=== PATIENT | female | born 1990 | race Caucasian/White ===

== ENCOUNTER 2016-09-06 23:22 | Emergency (ER) | payer OTHER ==
[~2016-09-06] VITALS: Ht 165.1 cm; Wt 102.1 kg
[2016-09-06 23:37] VITALS: TEMP 37; Ht 165.1 cm; Wt 102.1 kg
[2016-09-07] MEDS ORDERED: KETOROLAC TROMETHAMINE 30 MG/ML VIAL IV STA (00:02)
[2016-09-07] MEDS ORDERED: PROCHLORPERAZINE 5 MG/ML 2 ML VIAL IV STA (00:02)
[2016-09-07] MEDS ORDERED: DiphenhydrAMINE HCL 50 MG/ML VIAL IV STA (00:02)
[2016-09-07] MEDS ORDERED: SODIUM CHLORIDE 0.9% 1000ML 1,000 ML IV ONE (00:15)
[2016-09-07 00:17] LABS: BASO % 0.1 %; BASO ABS # 0.01 K/uL (0-0.2); COMPLETE YES; EOS % 0.1 %; HEMATOCRIT 40.6 % (37-47); IG% 0.4 %; LYMPH % 10.9 %; MEAN CORPUSCULAR HGB CONC 33.7 g/dl (32-36); MEAN PLATELET VOLUME 13.8 fL (7.4-10.4); MONO % 3.3 %; NEUT % 85.2 %; PLATELET COUNT 175 K/uL (130-400); RED BLOOD COUNT 4.56 M/uL (4.2-5.4); WHITE BLOOD COUNT 14.71 K/uL (4.8-10.8)
[2016-09-07 00:35] LABS: BUN/CREATININE RATIO 12.5 (10-20); CALCIUM 8.9 mg/dl (8.5-10.1); CREATININE 0.82 mg/dl (0.60-1.20); POTASSIUM 3.9 mmol/L (3.5-5.1)
[2016-09-07 00:46] LABS: ALB/GLOB RATIO 1.1 (0.9-2); THYROID STIMULATING HORMONE 2.26 uIu/ml (0.300-4.500)
[2016-09-07 01:09] LABS: LYME DISEASE AB IGG NEG (NEG); LYME DISEASE AB IGM NEG (NEG)
[2016-09-07] MEDS ORDERED: FLUO20CA35 PO (01:31)
[2016-09-07 01:59] VITALS: BP 121/77; PULSE 75; O2SAT 95
--- NOTE | 2016-09-07 05:44 | EMERGENCY ROOM VISIT NOTE ---
History First contact with patient: 23:41 Chief Complaint: NEURO SYMPTOMS Stated Complaint: TROUBLE/ TINGLING IN EYE, MIGRAINES, NUERO SYM Nursing Triage Summary: Patient with history of migraines, has had a migraine for last month. Patient was seen by PCP and given "a shot for pain" but it did not help. Tonight also c/o right sided weakness and right facial droop but symptoms resolved by time she got to ER. History of Present Illness The patient is a 25 year old female who presents to the Emergency Room with complaints of migraine headache symptoms off and on for the past one month. The patient has a long-standing history of migraine headaches, and does not regularly follow with neurology. Evidently she is staying in this area locally with a friend, and is unsure when she will be returning home. The patient did establish with a primary care physician's office this week and was given a shot of Toradol which did not significantly improve her symptoms. The patient states that tonight she had an odd sensation of twitching of her right eye, which is different for her. The patient also states that she felt like she had right-sided body weakness, however this only lasted for a few seconds before completely resolving. The patient has not had fever or chills. No neck pain or chest pain. She does take Prozac on a daily basis, but has been on this medication for some time. Review of Systems More than 10 systems were reviewed and otherwise negative with the exception of history of present illness. Past Medical/Surgical History History of chronic migraines Family History No pertinent family history Social History Smoking Status: Never Smoker Current/Historical Medications Scheduled Fluoxetine (Prozac), 20 MG PO DAILY Allergies Coded Allergies: No Known Allergies (Unverified , 09/06/16) Physical Exam Vital Signs Date Time Temp Pulse Resp B/P Pulse Ox O2 Delivery O2 Flow Rate FiO2 09/07/16 01:59 75 16 121/77 95 09/06/16 23:37 37.0 92 16 142/89 97 Room Air Pain Rating (0-10): 1.0 Physical Exam VITALS: Vitals are noted on the nurse's note and reviewed by myself. Vital signs stable. GENERAL: Well-developed, well-nourished, white female, who is in no acute distress and resting comfortably. Patient is cooperative with the examination. HEAD: Normocephalic atraumatic. EARS: External ear normal. External auditory canals clear, tympanic membranes pearly flowers without erythema or effusion bilaterally. EYES: Pupils equal round and reactive to light and accommodation. Conjunctivae without injection, sclerae without icterus. Extraocular movements intact. NOSE: Patent, turbinates without inflammation or discharge. MOUTH: Mucous membranes moist. Tonsils are not enlarged. Pharynx without erythema, blood, or exudate. Uvula midline. Airway patent. NECK: Supple without nuchal rigidity. No lymphadenopathy. No thyromegaly. Cervical spine is nontender. HEART: Regular rate and rhythm without murmurs gallops or rubs. LUNGS: Clear to auscultation bilaterally without wheezes, rales or rhonchi. No retractions or accessory muscle use. ABDOMEN: Positive normal bowel sounds x 4. Soft, nontender, without masses or organomegaly. No guarding or rebound tenderness. MUSCULOSKELETAL: No muscle atrophy, erythema, or edema noted. Full range of motion without joint tenderness in all extremities. No tenderness to palpation. Normal gait. Strength 5/5 throughout. NEURO: Patient was alert and oriented to person place and time. CN II through XII grossly intact. Deep tendon reflexes 2+ throughout. No focal neurological deficits SKIN: The skin was without rashes, erythema, edema, or bruising. Capillary reflex less than 2 seconds. Medical Decision & Procedures ER Provider Diagnostic Interpretation: Preliminary Findings Only See Final Report For Complete Findings CT HEAD: No intracranial hemorrhage or mass effect. Laboratory Results 09/07/16 00:05 Red Blood Count 4.56, Mean Corpuscular Volume 89.0, Mean Corpuscular Hemoglobin 30.0, Mean Corpuscular Hemoglobin Concent 33.7, Mean Platelet Volume 13.8, Neutrophils (%) (Auto) 85.2, Lymphocytes (%) (Auto) 10.9, Monocytes (%) (Auto) 3.3, Eosinophils (%) (Auto) 0.1, Basophils (%) (Auto) 0.1, Neutrophils # (Auto) 12.53, Lymphocytes # (Auto) 1.60, Monocytes # (Auto) 0.49, Eosinophils # (Auto) 0.02, Basophils # (Auto) 0.01 09/07/16 00:05 Test 09/07/16 00:05 White Blood Count 14.71 K/uL (4.8-10.8) Red Blood Count 4.56 M/uL (4.2-5.4) Hemoglobin 13.7 g/dL (12.0-16.0) Hematocrit 40.6 % (37-47) Mean Corpuscular Volume 89.0 fL (80-100) Mean Corpuscular Hemoglobin 30.0 pg (25-34) Mean Corpuscular Hemoglobin Concent 33.7 g/dl (32-36) Platelet Count 175 K/uL (130-400) Mean Platelet Volume 13.8 fL (7.4-10.4) Neutrophils (%) (Auto) 85.2 % Lymphocytes (%) (Auto) 10.9 % Monocytes (%) (Auto) 3.3 % Eosinophils (%) (Auto) 0.1 % Basophils (%) (Auto) 0.1 % Neutrophils # (Auto) 12.53 K/uL (1.4-6.5) Lymphocytes # (Auto) 1.60 K/uL (1.2-3.4) Monocytes # (Auto) 0.49 K/uL (0.11-0.59) Eosinophils # (Auto) 0.02 K/uL (0-0.5) Basophils # (Auto) 0.01 K/uL (0-0.2) RDW Standard Deviation 42.3 fL (36.4-46.3) RDW Coefficient of Variation 13.2 % (11.5-14.5) Immature Granulocyte % (Auto) 0.4 % Immature Granulocyte # (Auto) 0.06 K/uL (0.00-0.02) Anion Gap 12.0 mmol/L (3-11) Est Creatinine Clear Calc Drug Dose 123.2 ml/min Estimated GFR () 114.5 Estimated GFR (Non- 98.8 BUN/Creatinine Ratio 12.5 (10-20) Calcium Level 8.9 mg/dl (8.5-10.1) Total Bilirubin 0.2 mg/dl (0.2-1) Aspartate Amino Transf (AST/SGOT) 14 U/L (15-37) Alanine Aminotransferase (ALT/SGPT) 24 U/L (12-78) Alkaline Phosphatase 93 U/L (45-117) Total Protein 7.1 gm/dl (6.4-8.2) Albumin 3.7 gm/dl (3.4-5.0) Globulin 3.4 gm/dl (2.5-4.0) Albumin/Globulin Ratio 1.1 (0.9-2) Thyroid Stimulating Hormone (TSH) 2.260 uIu/ml (0.300-4.500) Lyme Disease IgG Antibody NEG (NEG) Lyme Disease IgM Antibody NEG (NEG) Medications Administered Medications (Trade) Dose Ordered Sig/Indu Route Start Time Stop Time Status Last Admin Dose Admin Diphenhydramine HCl (Benadryl Inj) 50 mg NOW STAT IV 09/07/16 00:02 09/07/16 00:05 DC 09/07/16 00:15 50 MG Prochlorperazine Edisylate (Compazine Inj) 10 mg NOW STAT IV 09/07/16 00:02 09/07/16 00:05 DC 09/07/16 00:15 10 MG Ketorolac Tromethamine 30 mg 30 mg NOW STAT IV 09/07/16 00:02 09/07/16 00:05 DC 09/07/16 00:15 30 MG Sodium Chloride (Nss 1000ml) 1,000 ml @ 999 mls/hr Q1H1M ONCE IV 09/07/16 00:15 09/07/16 01:15 DC 09/07/16 00:15 999 MLS/HR ED Course Physical exam and history were performed. Nursing notes and EMR were reviewed. Patient appears to have a persistent headache for the past month. On examination the patient does not appear toxic or in any distress. Neurologically she is intact. IV access was established and labs were obtained. The patient was hydrated with normal saline and given 30 mg IV Toradol, 10 mg IV Compazine, and 50 mg IV Benadryl. She has not had recent imaging of her head, and does not follow with neurology. Because of this I did elect to perform a CT scan. The patient's blood work is as above and was reviewed. She does not have a significantly elevated white blood cell count, anemia, bandemia, or gross electrolyte imbalance. Her remaining blood work is nondiagnostic. She does not have a positive Lyme screen. Her CT scan does not show evidence of acute intracranial findings. Overall the patient had significant improvement of her symptoms after the above intervention. I had a lengthy discussion with her regarding further options of care. The patient felt comfortable with discharge home without further testing. This appears reasonable, as I suspect her symptoms are related to her migraine headaches. I did recommend that she follow with neurology locally if she has intention of staying in this area for some time. The patient was otherwise invited back to the ER with new, worsening, or concerning symptoms. She was discharged home under the care of a female manager highway who is acting as the dedicated driver today. The chart was completed utilizing [email or web address] Speech Voice Recognition Software. Grammatical errors, random word insertions, pronoun errors, and incomplete sentences are an occasional consequence of this system due to software limitations, ambient noise, and hardware issues. Any formal questions or concerns about the content, text, or information contained within the body of this dictation should be directly addressed to the provider for clarification. . Medical Decision The differential diagnosis includes, but is not limited to: acute intracranial bleed, meningitis, encephalitis, mass or mass effect, sinusitis, infection, tumor, headache, temporal arteritis and carbon monoxide exposure, and migraine. Impression Primary Impression: Migraine Departure Information Dispostion Home / Self-Care Condition GOOD Forms HOME CARE DOCUMENTATION FORM, IMPORTANT VISIT INFORMATION Patient Instructions My [facility] Additional Instructions You were seen and evaluated today on an emergency basis only. This is not a substitute for, or an effort to provide, complete comprehensive medical care. It is not possible to recognize and treat all injuries or illnesses in a single emergency department visit. For this reason it is recommended that you followup with your primary care physician or neurologist this week for ongoing care and evaluation. DO NOT drive, drink alcohol, operate machinery, or perform dangerous activities today. You were given medications in the ER that can affect your ability to safely function or operate a vehicle. Rest today in a quiet, peaceful, dark environment and get a full 8-10 hrs of sleep tonight. Avoid loud noises, smoke/smoking, alcohol, bright lights, stress, or physical exertion today to minimize the chance the headache may return. Continue current medications. Ibuprofen(Motrin, Advil) may be used for fever or pain. Use 600mg every six hours as needed. Take with food. Avoid using more than 2400mg in a 24 hour period. Do not use 2400mg per day for more than three consecutive days without physician direction. Prolonged inappropriate use can lead to stomach upset or ulcers. (AND/OR) Acetaminophen(Tylenol) may be used for fever or pain. Use 1000mg every six hours as needed. Avoid using more than 4000mg in a 24 hour period. Return to the ER for passing out, worsening headache, vision problems, neck stiffness/pain, fevers, vomiting, worsening of your condition, or as needed.
--- NOTE | 2016-09-07 07:04 | DIAGNOSTIC IMAGING REPORT ---
CT OF THE HEAD WITHOUT CONTRAST CLINICAL HISTORY: Migraine headache. COMPARISON STUDY: No previous studies for comparison. CT DOSE: 537.48 mGy.cm TECHNIQUE: Helical axial images of the head were obtained without IV contrast. Automated exposure control was utilized for the study. FINDINGS: No acute intracranial hemorrhage, midline shift or mass effect is present. Ventricular system is normal. Basilar cisterns are patent. There are no extra-axial collections. Sarkar-white differentiation is maintained. There are no findings to suggest acute dural sinus thrombosis or acute territorial infarct. There is no calvarial fracture. Visualized portions of the sinuses and the mastoid air cells are clear. IMPRESSION: No acute intracranial findings. Electronically signed by: Venkata Wilson M.D. 09/07/2016 7:02 AM Dictated Date/Time: 09/07/2016 7:01 AM
== END 2016-09-07 02:00 | disposition home or self-care (01) ==
LOC: C.EDB 23:24
DX: G43.909 Migraine, unspecified, not intractable, without status migrainosus (principal); M62.81 Muscle weakness (generalized)

== ENCOUNTER 2016-09-10 12:58 | Emergency (ER) | payer OTHER ==
[~2016-09-10] VITALS: Ht 170.2 cm; Wt 91.0 kg
[2016-09-10 12:57] VITALS: TEMP 36.6; Ht 170.2 cm; Wt 91.0 kg
[~2016-09-10 12:58] MED LIST: FLUO20CA35 PO
[2016-09-10 13:00] VITALS: O2SAT 97
[2016-09-10] MEDS ORDERED: SODIUM CHLORIDE 0.9% 1000ML 1,000 ML IV STA (13:16)
[2016-09-10] MEDS ORDERED: DiphenhydrAMINE HCL 50 MG/ML VIAL IV STA (13:16)
[2016-09-10] MEDS ORDERED: PROCHLORPERAZINE 5 MG/ML 2 ML VIAL IV STA (13:16)
--- NOTE | 2016-09-10 13:24 | EMERGENCY ROOM VISIT NOTE ---
History First contact with patient: 13:04 Chief Complaint: HEADACHE Stated Complaint: HEAD PAIN/ PALPITATIONS History of Present Illness The patient is a 25 year old female who presents to the Emergency Department via EMS for evaluation of an episode of possible headache with other associated symptoms. The patient reports that she was seen in this facility 2 days ago for a hemiplegic migraine. She reports that she has been a symptomatic since her visit to the emergency department. She did schedule an appointment with [facility] neurology for November. She's had migraines in the past, but has never seen a neurologist. The patient reports that her symptoms 2 days ago for the worse she experience. While driving from [place] to [place] today, she reports experiencing tingling in her hands as well as face and fell as though everything was shaking. She pulled inside the throat and reports feeling extremely confused. She was able to contact EMS. Upon arrival, please noted the patient was externally sweaty. She reports that her symptoms have since resolved, however she now complains of an intense headache to the top of her head rating her pain an 8/10. The patient currently denies any blurry vision, double vision, slurred speech, facial droop, unilateral weakness/ numbness, chest pain, nausea, vomiting, abdominal pain, or chance for . She denies any changes in medications recently. She does take Prozac for anxiety. She does not complain of any new or recent stressors otherwise. She denies any new substance abuse. She reports no recent alcohol use either. Review of Systems A complete 10-point Review of Systems was discussed with the patient, with pertinent positives and negatives listed in the History of Present Illness. All remaining Review of Systems questions can be considered negative unless otherwise specified. Social History Smoking Status: Never Smoker Smokeless Tobacco Use: No Drug Use: none Marital Status: in relationship Occupation Status: employed Current/Historical Medications Scheduled Fluoxetine (Prozac), 20 MG PO DAILY Scheduled PRN Tramadol (Ultram), 1-2 TAB PO Q4H PRN for Pain Allergies Coded Allergies: No Known Allergies (Unverified , 09/10/16) Physical Exam Vital Signs Date Time Temp Pulse Resp B/P Pulse Ox O2 Delivery O2 Flow Rate FiO2 09/10/16 18:46 88 18 127/85 96 09/10/16 18:26 88 18 127/85 96 Room Air 2/16/17 17:30 82 18 119/71 96 Room Air 09/10/16 17:00 70 117/69 94 Room Air 09/10/16 16:53 71 20 118/70 98 Room Air 09/10/16 16:45 73 20 109/68 98 Room Air 09/10/16 16:00 73 20 119/83 97 Room Air 09/10/16 15:59 74 20 122/70 99 Room Air 09/10/16 14:40 82 20 132/79 99 Room Air 09/10/16 14:36 81 09/10/16 13:00 97 Room Air 09/10/16 12:57 36.6 73 20 144/84 97 Room Air Pain Rating (0-10): 8 Physical Exam VITAL SIGNS - Vital signs and nursing notes were reviewed. GENERAL - 25-year-old female appearing her stated age who is in no acute distress. Communicates well with provider and answers questions appropriately. HEAD - Normocephalic, Atraumatic. No Valentin's Sign or Raccoon's Eyes. No depressed skull fractures palpable. EYES - PERRL with EOMI bilaterally. Sclera anicteric. Palpebral conjunctiva pink and moist with no injection noted. EARS - No deformities of external structures noted on gross examination bilaterally. No pain elicited with palpation of the tragus bilaterally. External auditory canals without discharge or otorrhea. Tympanic membranes pearly flowers without retraction or bulging. NOSE - Midline and without cyanosis. No epistaxis or purulent drainage noted. Septum midline without deviation or septal hematoma noted. MOUTH/OROPHARYNX - Without perioral cyanosis. Buccal mucosa pink and moist and without leukoplakia. Tongue midline with equal elevation of palate bilaterally. No tonsillar hypertrophy, erythema, or exudates noted. Good dentition noted. NECK - Neck with FROM. Supple to palpation. No lymphadenopathy noted. No nuchal rigidity. LUNGS - Chest wall symmetric without accessory muscle use, intercostals retractions, or central cyanosis. Normal vesicular breath sounds CTA B/L. No wheezes, rales, or rhonchi appreciated. CARDIAC - RRR with S1/S2. No murmur, rubs, or gallops appreciated. ABDOMEN - Abdominal contour obese and without pulsations or visible masses. BS normoactive all four quadrants. No tenderness, palpable masses, hepatosplenomegaly, or ascites noted. EXTREMITIES - No pretibial edema present. +3/5 radial and dorsalis pedis pulses palpated throughout. FROM with no tremors, fasciculations, or clonus noted on PROM throughout. +5/5 strength noted in UE/LE bilaterally. NEUROLOGIC - Cranial nerves II through XII grossly intact. Sensory intact to light touch throughout. Patellar reflexes +2/4. Patient able to perform rapid alternating movements appropriately. Negative Pronator Drift. Negative finger-to -nose. PSYCH - A&Ox3 and cooperates fully with examiner. Pt is very pleasant and interacts well with examiner. Medical Decision & Procedures ER Provider Diagnostic Interpretation: Radiological imaging and reports were reviewed by myself. Radiologist's Interpretation as follows: Brain MRI WITHOUT CONTRAST HISTORY: Headache. atypical migraine? TECHNIQUE: Multiplanar multisequence MRI of the brain was performed without the use of contrast. COMPARISON STUDY: Head CT 09/07/2016. FINDINGS: There are no areas of restricted diffusion to suggest acute infarction. The midline structures are intact. The paranasal sinuses are clear. The mastoid air cells are clear. The ventricles and sulci are within normal limits for age. There is no mass, hematoma, midline shift. The major vascular flow-voids at the skull base are well maintained. IMPRESSION: No acute intracranial abnormality. Laboratory Results 09/10/16 14:10 Red Blood Count 4.97, Mean Corpuscular Volume 88.9, Mean Corpuscular Hemoglobin 30.8, Mean Corpuscular Hemoglobin Concent 34.6, Mean Platelet Volume 13.6, Neutrophils (%) (Auto) 74.0, Lymphocytes (%) (Auto) 18.5, Monocytes (%) (Auto) 6.1, Eosinophils (%) (Auto) 0.5, Basophils (%) (Auto) 0.2, Neutrophils # (Auto) 19.28, Lymphocytes # (Auto) 4.82, Monocytes # (Auto) 1.60, Eosinophils # (Auto) 0.13, Basophils # (Auto) 0.06 09/10/16 14:10 Test 09/10/16 00:00 09/10/16 13:16 09/10/16 14:10 09/10/16 14:13 CSF Color COLORLESS CSF Appearance CLEAR CSF WBC 4 /uL (0-5) CSF RBC 52 /uL (0) CSF Xanthrochromic NO XANTHOCHROMIA CSF Cell Count Tube # 3 CSF Polynuclear WBCs (%) % CSF Chemistry Tube # 1 CSF Glucose 52 mg/dl (40-70) CSF Total Protein 43.6 mg/dl (15.0-45.0) Urine Test NEG (NEG) White Blood Count 26.07 K/uL (4.8-10.8) Red Blood Count 4.97 M/uL (4.2-5.4) Hemoglobin 15.3 g/dL (12.0-16.0) Hematocrit 44.2 % (37-47) Mean Corpuscular Volume 88.9 fL (80-100) Mean Corpuscular Hemoglobin 30.8 pg (25-34) Mean Corpuscular Hemoglobin Concent 34.6 g/dl (32-36) Platelet Count 184 K/uL (130-400) Mean Platelet Volume 13.6 fL (7.4-10.4) Neutrophils (%) (Auto) 74.0 % Lymphocytes (%) (Auto) 18.5 % Monocytes (%) (Auto) 6.1 % Eosinophils (%) (Auto) 0.5 % Basophils (%) (Auto) 0.2 % Neutrophils # (Auto) 19.28 K/uL (1.4-6.5) Lymphocytes # (Auto) 4.82 K/uL (1.2-3.4) Monocytes # (Auto) 1.60 K/uL (0.11-0.59) Eosinophils # (Auto) 0.13 K/uL (0-0.5) Basophils # (Auto) 0.06 K/uL (0-0.2) RDW Standard Deviation 42.2 fL (36.4-46.3) RDW Coefficient of Variation 13.0 % (11.5-14.5) Immature Granulocyte % (Auto) 0.7 % Immature Granulocyte # (Auto) 0.18 K/uL (0.00-0.02) Prothrombin Time 10.2 SECONDS (9.0-12.0) Prothromb Time International Ratio 1.0 (0.9-1.1) Activated Partial Thromboplast Time 23.2 SECONDS (21.0-31.0) Partial Thromboplastin Ratio 0.9 Anion Gap 11.0 mmol/L (3-11) Est Creatinine Clear Calc Drug Dose 123.4 ml/min Estimated GFR () 117.9 Estimated GFR (Non- 101.8 BUN/Creatinine Ratio 14.1 (10-20) Calcium Level 9.3 mg/dl (8.5-10.1) Magnesium Level 2.2 mg/dl (1.8-2.4) Total Bilirubin 0.2 mg/dl (0.2-1) Aspartate Amino Transf (AST/SGOT) 16 U/L (15-37) Alanine Aminotransferase (ALT/SGPT) 25 U/L (12-78) Alkaline Phosphatase 97 U/L (45-117) Total Creatine Kinase 54 U/L (26-192) Creatine Kinase MB < 0.5 ng/ml (0.5-3.6) Creatine Kinase MB Ratio (0-3.0) Total Protein 7.4 gm/dl (6.4-8.2) Albumin 3.9 gm/dl (3.4-5.0) Globulin 3.5 gm/dl (2.5-4.0) Albumin/Globulin Ratio 1.1 (0.9-2) Lipase 134 U/L (73-393) Thyroid Stimulating Hormone (TSH) 3.730 uIu/ml (0.300-4.500) Ethyl Alcohol mg/dL < 3.0 mg/dl (0-3) Lyme Disease IgG Antibody NEG (NEG) Lyme Disease IgM Antibody NEG (NEG) Bedside Troponin I 0.010 ng/ml (0-0.045) Test 09/10/16 14:20 Urine Color YELLOW Urine Appearance CLEAR (CLEAR) Urine pH >= 9.0 (4.5-7.5) Urine Specific [place] 1.009 (1.000-1.030) Urine Protein NEG (NEG) Urine Glucose (UA) NEG (NEG) Urine Ketones NEG (NEG) Urine Occult Blood NEG (NEG) Urine Nitrite NEG (NEG) Urine Bilirubin NEG (NEG) Urine Urobilinogen NEG (NEG) Urine Leukocyte Esterase NEG (NEG) Urine Opiates Screen NEG (NEG) Urine Methadone, Qualitative NEG (NEG) Urine Barbiturates NEG (NEG) Urine Phencyclidine (PCP) Level NEG (NEG) Ur Amphetamine/Methamphetamine NEG (NEG) MDMA (Ecstasy) Screen NEG (NEG) Urine Benzodiazepines Screen NEG (NEG) Urine Cocaine Metabolite NEG (NEG) Urine Marijuana (THC) NEG (NEG) Medications Administered Medications (Trade) Dose Ordered Sig/Indu Route Start Time Stop Time Status Last Admin Dose Admin Sodium Chloride (Nss 1000ml) 1,000 ml @ 999 mls/hr Q1H1M STAT IV 09/10/16 13:16 09/10/16 14:16 DC 09/10/16 13:16 999 MLS/HR Prochlorperazine Edisylate (Compazine Inj) 10 mg NOW STAT IV 09/10/16 13:16 09/10/16 13:19 DC 09/10/16 14:31 10 MG Diphenhydramine HCl (Benadryl Inj) 25 mg NOW STAT IV 09/10/16 13:16 09/10/16 13:19 DC 09/10/16 14:30 25 MG Dexamethasone Sodium Phosphate (Decadron Inj) 10 mg NOW ONCE IV 09/10/16 13:30 09/10/16 13:31 DC 09/10/16 14:31 10 MG Procedure Patient was placed on the monitoring tech and monitored throughout the entire extent of their stay. In addition, the patient's pulse oximetry was monitored throughout the entire stay. Any abnormalities or aberrancies were addressed appropriately. Lumbar Puncture Indication: Headache, Leukocytosis. Verbal consent was obtained after the risks and benefits were explained, including but not limited to headache, bleeding/clotting, scarring, infection, pain, and bone/joint/nerve damage. At this time, the risks of the procedure are less than the risks of NOT performing the procedure. A time out was taken and the correct patient and site identified. The patient was placed in the seated position and the back was prepped with betadine and draped in the standard fashion. The L3 intervertebral space was identified, anesthetized locally with 1 % lidocaine without epinephrine, and the spinal needle was inserted through the skin with the bevel parallel to the dural fibers. The needle was carefully advanced into the lumbar cistern and 4 tubes of clear CSF was obtained. The stylet was replaced and the needle was removed. A bandaid was placed and the patient was placed in the supine position. The patient tolerated the procedure well and there were no complications. ECG Indication: palpitations Rate (beats per minute): 84 Rhythm: normal sinus Findings: nonspecific-ST abn (Inferior), no acute ischemic change, no ectopy Comparison ECG Date: no prior available ED Course Patient was seen and evaluated by myself. Previous emergency department visit note was reviewed. Labs were drawn, saline lock in place. The patient was hydrated with 1000 mL normal saline. Patient received 10 mg Compazine, 25 mg Benadryl, and 10 mg Decadron intravenously. MRI of the brain without contrast was ordered. Laboratory results demonstrates a market leukocytosis of greater than 26,000. The patient is not anemic. There are no significant electrolyte abnormalities. Cardiac enzymes were negative. Troponin was not elevated. Lyme titer was negative. MRI as above. Case was discussed with my attending physician who agrees with diagnostic approach and treatment plan. Lumbar puncture was performed. CSF analysis was found to be unremarkable. I did discuss the case with Dr. Pennington from neurology. He suggests providing the patient pain medication for home as well as having her contact the office tomorrow morning to set up an appointment with his physician assistant professor. The patient was educated on worrisome symptoms for return visit to the emergency department. Patient discharged home in good condition with her significant other driving. Medical Decision Given the patient's presentation and stated complaints, I did elect to perform the above-mentioned workup. The patient seems to have had symptoms consistent with a migrainous type aura resulting in a migraine type headache. She has no fever. She was found to have a market leukocytosis, however on laboratory analysis. She does admit to taking a Medrol Dosepak at this point for pneumonia. Certainly the margination can result in elevation of white blood cell, however this is certainly a large jump within the last few days. At this point, lumbar puncture was performed. CSF was unremarkable. The patient had complete resolve of symptoms of migraine cocktail. In consultation with neurology, it is felt best that the patient be provided something for pain and have the patient follow closely in office within the next week or so. Patient is comfortable with this disposition and plan. She was educated on worrisome symptoms for return visit to the emergency department. Patient discharged home afebrile and in good condition. In the evaluation and treatment of this patient, the following differential diagnoses were considered: Migraine Headache, Intracranial Hemorrhage, Subdural Hematoma, Subarachnoid Hemorrhage, Cerebral Aneurysm, Temporal/Giant Cell Arteritis, Tension Headache, Meningitis, Encephalitis, or Hydrocephalus. Impression Primary Impression: Atypical migraine Departure Information Dispostion Home / Self-Care Condition GOOD Prescriptions Tramadol (Ultram) 50 Mg Tab 1-2 TAB PO Q4H Y for Pain, #20 TAB For Initial Treatment Prov: AlmaLacho PA-C 09/10/16 Referrals No Doctor, Assigned (PCP) Joe Pennington M.D. Patient Instructions ED Headache Migraine, My [facility] Additional Instructions You have been treated in the Emergency Department for a Headache. Please contact the urologist's office tomorrow morning to set up a follow-up appointment. Please explained to them that you were encouraged to contact their office to schedule an appointment with the physician assistant professor in office per Dr. Pennington. You have been prescribed Ultram to be used for pain control. This is a narcotic medication. You cannot drive or consume alcohol while on this medicine. This medicine should only be used for pain that cannot be controlled with over-the- counter pain medicines. For pain control, you can use the following [id number] medicines (if >12 yo): - Regular strength (325mg/tab) Tylenol (acetaminophen) 2 tabs every 4-6 hours as needed. Do not exceed 12 tablets in a 24 hour period. Avoid taking more than 4 grams (4000 mg) of Tylenol per day. This includes any other sources of acetaminophen you may take on a regular basis. - Regular strength (200 mg/tab) Advil (ibuprofen) 1-2 tabs every 4-6 hours as needed. Do not exceed a dose of 3200 mg per day. You should relax in a quiet, dark place for the rest of the day. Avoid any possible triggers including: cigarette smoke, caffeine, nicotine, chocolate, wine, beer, loud noises or music, or bright lights. You should schedule a follow-up appointment in 2-3 days with your Primary Care Provider or established Neurologist for further evaluation and treatment of your Headache. Return to the Emergency Department if your current symptoms worsen despite treatment course outlined above, or if you develop any of the following symptoms : intractable pain despite aforementioned treatment course, visual disturbances , loss of vision, unilateral weakness or facial drooping, slurring of speech, loss of coordination, or loss of consciousness.
[2016-09-10] MEDS ORDERED: DEXAMETHASONE SOD INJ 10 MG/ML VIAL IV ONE (13:30)
[2016-09-10 14:24] LABS: BASO % 0.2 %; BASO ABS # 0.06 K/uL (0-0.2); COMPLETE YES; EOS % 0.5 %; HEMATOCRIT 44.2 % (37-47); IG% 0.7 %; LYMPH % 18.5 %; LYMPH ABS # 4.82 K/uL (1.2-3.4); MEAN CELL VOLUME 88.9 fL (80-100); MEAN CORPUSCULAR HEMOGLOBIN 30.8 pg (25-34); MEAN CORPUSCULAR HGB CONC 34.6 g/dl (32-36); MEAN PLATELET VOLUME 13.6 fL (7.4-10.4); MONO % 6.1 %; PLATELET COUNT 184 K/uL (130-400); RED BLOOD COUNT 4.97 M/uL (4.2-5.4); WHITE BLOOD COUNT 26.07 K/uL (4.8-10.8)
[2016-09-10 14:33] LABS: PARTIAL THROMBOPLASTIN RATIO 0.9; PROTHROMBIN TIME (PATIENT) 10.2 SECONDS (9.0-12.0)
[2016-09-10 14:43] LABS: ALT/SGPT 25 U/L (12-78); BLOOD UREA NITROGEN 11 mg/dl (7-18); BUN/CREATININE RATIO 14.1 (10-20); CALCIUM 9.3 mg/dl (8.5-10.1); CARBON DIOXIDE 28 mmol/L (21-32); CHLORIDE 103 mmol/L (98-107); GLUCOSE 95 mg/dl (70-99); MAGNESIUM 2.2 mg/dl (1.8-2.4); POTASSIUM 3.8 mmol/L (3.5-5.1); SODIUM 142 mmol/L (136-145)
[2016-09-10 14:54] LABS: ALB/GLOB RATIO 1.1 (0.9-2); ALKALINE PHOSPHATASE 97 U/L (45-117); AST/SGOT 16 U/L (15-37)
[2016-09-10 15:03] LABS: URINE APPEARANCE CLEAR (CLEAR); URINE BILIRUBIN NEG (NEG); URINE COLOR YELLOW; URINE NITRITE NEG (NEG); URINE PH >= 9.0 (4.5-7.5); URINE SPECIFIC GRAVITY 1.009 (1.000-1.030); UROBILINOGEN NEG (NEG); ZZUR CULT IF INDIC CLEAN CATCH NO
[2016-09-10 15:09] LABS: MANUAL MICROSCOPIC REQUIRED? NO; REVIEW REQ? NO
[2016-09-10 15:16] LABS: LYME DISEASE AB IGG NEG (NEG); LYME DISEASE AB IGM NEG (NEG)
[2016-09-10 15:24] LABS: BENZODIAZEPINE, URINE NEG (NEG); COCAINE,URINE NEG (NEG); PHENCYCLIDINE, URINE NEG (NEG)
--- NOTE | 2016-09-10 15:38 | DIAGNOSTIC IMAGING REPORT ---
Brain MRI WITHOUT CONTRAST HISTORY: Headache. atypical migraine? TECHNIQUE: Multiplanar multisequence MRI of the brain was performed without the use of contrast. COMPARISON STUDY: Head CT 09/07/2016. FINDINGS: There are no areas of restricted diffusion to suggest acute infarction. The midline structures are intact. The paranasal sinuses are clear. The mastoid air cells are clear. The ventricles and sulci are within normal limits for age. There is no mass, hematoma, midline shift. The major vascular flow-voids at the skull base are well maintained. IMPRESSION: No acute intracranial abnormality. Electronically signed by: Jaycob Noyola M.D. 09/10/2016 3:36 PM Dictated Date/Time: 09/10/2016 3:30 PM
--- NOTE | 2016-09-10 16:44 | EMERGENCY ROOM VISIT NOTE ---
ED Visit Note First contact with patient: 13:04 This Patient was discussed with the physician assistant general manager, Lacho Marquez PA-C. The pertinent historical and physical exam findings were confirmed. I agree with the studies ordered and with the interpretations of these studies. I agree with the disposition and care plan.
[2016-09-10 17:12] LABS: CSF TOTAL PROTEIN 43.6 mg/dl (15.0-45.0)
[2016-09-10 17:35] LABS: CSF APPEARANCE CLEAR; CSF COLOR COLORLESS; CSF XANTHOCHROMIC NO XANTHOCHROMIA
[2016-09-10] MEDS ORDERED: TRAM-10 PO (18:21)
[2016-09-10 18:46] VITALS: BP 127/85; PULSE 88; O2SAT 96
== END 2016-09-10 18:48 | disposition home or self-care (01) ==
LOC: EDBD 12:58 → C.EDB 12:59
DX: G43.909 Migraine, unspecified, not intractable, without status migrainosus (principal); D72.829 Elevated white blood cell count, unspecified; F41.9 Anxiety disorder, unspecified; Z79.899 Other long term (current) drug therapy

== ENCOUNTER 2016-09-13 08:55 | Emergency (ER) | payer OTHER ==
[~2016-09-13] VITALS: Ht 172.7 cm; Wt 103.2 kg
[~2016-09-13 08:55] MED LIST changes: +TRAM-10 PO
[2016-09-13 09:04] VITALS: BP 122/91; PULSE 115; TEMP 36.4; O2SAT 96; Ht 172.7 cm; Wt 103.2 kg
[2016-09-13] MEDS ORDERED: PROMETHAZINE HCL INJ 25 MG in SODIUM CHLORIDE 0.9% 50ML 50 ML IV STA (09:24)
[2016-09-13] MEDS ORDERED: SODIUM CHLORIDE 0.9% 1000ML 1,000 ML IV STA (09:24)
[2016-09-13] MEDS ORDERED: KETOROLAC TROMETHAMINE 30 MG/ML VIAL IV STA (09:24)
--- NOTE | 2016-09-13 18:06 | EMERGENCY ROOM VISIT NOTE ---
History First contact with patient: 09:14 Chief Complaint: HEADACHE Stated Complaint: MIGRAINE History of Present Illness The patient is a 25 year old white female who presents to the Emergency Room with complaints of a severe headache. A female friend accompanies her today. The friend states that the patient has had daily headaches for the last 7 days. This is her third visit to the ED in 7 days. At her previous visits she had CT scan imaging of her head and a brain MRI as well as spinal tap. All of these were normal. Previous lab work showed an elevated white count of 26,000 3 days ago. The rest of her lab work was normal. Her friend states that the patient had hemiparesis on the right side earlier today. She has had this several times over the course of the week. She has never had left-sided hemiparesis. They state that the patient has had total loss of motor function in her upper and lower extremities with some of her previous headaches as well. She was previously treated at [facility] as well as [facility] for similar headaches, though they were not as severe. Patient denies any head trauma. She is photophobic. She is nauseated but denies any vomiting. She arrives in a wheelchair with an ice pack on her forehead. There has been no loss of bowel or bladder control. No blurred vision or double vision. No facial droop. No chest pain or abdominal pain. There is a history of anxiety. She has an appointment to see a neurologist. Review of Systems Unchanged from previous exam 3 days ago Past Medical/Surgical History Medical history: Significant for anxiety and migraine headaches Previous surgeries: None Family History Noncontributory. Social History Smoking Status: Former Smoker Smokeless Tobacco Use: No Alcohol Use: none Drug Use: none Marital Status: in relationship Occupation Status: employed Current/Historical Medications Scheduled Fluoxetine (Prozac), 20 MG PO DAILY Scheduled PRN Tramadol (Ultram), 1-2 TAB PO Q4H PRN for Pain Allergies Coded Allergies: No Known Allergies (Unverified , 09/10/16) Physical Exam Vital Signs Date Time Temp Pulse Resp B/P Pulse Ox O2 Delivery O2 Flow Rate FiO2 09/13/16 09:04 36.4 115 16 122/91 96 Room Air Physical Exam Gen.: Well-developed, well-nourished, obese young white female, in obvious discomfort. No acute distress. Laying on a bed. Alert and oriented. She has her eyes closed. She is able to ambulate from the wheelchair to the bed with assistance. Skin:Warm and dry with good turgor. No rashes or lesions. No ecchymosis or erythema. The patient is not diaphoretic. No abrasions. HEENT : Normocephalic atraumatic. Eyes PERRLA, EOMI. No conjunctiva or scleral injection. Ears TMs intact bilaterally with good light reflexes. No erythema or bulging. No hemotympanum. Canals are patent. Nares patent bilaterally without turbinate enlargement. No significant drainage. No epistaxis. Oropharynx without erythema or exudate. Uvula midline, oral mucosa moist. No lesions present. Tongue is pierced. Heart: Heart RRR. No MGR. Peripheral pulses are 2+. Lungs: Lungs are clear to auscultation. No crackles rhonchi or wheezing. Good air movement. The patient is able to take a deep breath. Abdomen: Abdomen was inspected, auscultated, and palpated. Obese. Bowel sounds present x 4. Soft, nontender to palpation. No hepato-splenomegaly. No masses noted. No rebound. Musculoskeletal: Gross motor function of the upper and lower extremities is intact and unremarkable. No strength deficit. Neurologic: Cranial nerves II through XII are intact. Gross sensation is intact across the upper and lower extremities by soft touch. No facial droop. DTRs are 2+ bilaterally at the knees and ankles. Medical Decision & Procedures Laboratory Results CBC and comprehensive metabolic panel were ordered. These were not completed. ED Course Patient was evaluated in A11. She was ordered lab work, saline lock, hydration with a liter of saline, Phenergan 25 mg IV, and Toradol 30 mg IV. After I left the room, the nurse went back to the room to start her IV and obtain lab work and the patient had eloped. No additional treatment was rendered. Medical Decision Possibility of atypical migraine exists. Given her exam, I do not think she was having a TIA or CVA. Impression Primary Impression: Headache Departure Information Dispostion Against Medical Advice Condition FAIR Referrals RV. Vargas MD (PCP) Forms HOME CARE DOCUMENTATION FORM, IMPORTANT VISIT INFORMATION Patient Instructions My [facility] Problem Qualifiers Primary Impression: Headache Headache chronicity pattern: chronic headache Intractability: intractable
== END 2016-09-13 09:50 | disposition left against medical advice (07) ==
LOC: C.EDB 08:56 → C.EDA 09:50
DX: R51 Headache (principal); Z87.891 Personal history of nicotine dependence; Z79.899 Other long term (current) drug therapy

== ENCOUNTER → 2016-09-15 | Outpatient (CLI) | payer OTHER ==
[2016-09-15 13:14] LABS: HEMATOCRIT 41.7 % (37-47); MEAN CELL VOLUME 88.9 fL (80-100); MEAN CORPUSCULAR HEMOGLOBIN 29.6 pg (25-34); MEAN CORPUSCULAR HGB CONC 33.3 g/dl (32-36); MEAN PLATELET VOLUME 13.8 fL (7.4-10.4); PLATELET COUNT 177 K/uL (130-400); RED BLOOD COUNT 4.69 M/uL (4.2-5.4); WHITE BLOOD COUNT 16.92 K/uL (4.8-10.8)
== END | disposition home or self-care (01) ==
LOC: C.LAB1850 11:43
PROVIDERS: ATTEND Internal Medicine
DX: G43.909 Migraine, unspecified, not intractable, without status migrainosus (principal)

== ENCOUNTER → 2016-09-23 | Outpatient (CLI) | payer OTHER ==
[2016-09-23 13:23] LABS: BASO % 0.3 %; BASO ABS # 0.04 K/uL (0-0.2); COMPLETE YES; EOS % 2.1 %; HEMATOCRIT 40.9 % (37-47); IG% 0.5 %; LYMPH ABS # 2.51 K/uL (1.2-3.4); MEAN CELL VOLUME 86.8 fL (80-100); MEAN CORPUSCULAR HEMOGLOBIN 29.5 pg (25-34); MEAN PLATELET VOLUME 13.8 fL (7.4-10.4); MONO % 6.8 %; NEUT % 70.3 %; PLATELET COUNT 154 K/uL (130-400); RED BLOOD COUNT 4.71 M/uL (4.2-5.4); WHITE BLOOD COUNT 12.56 K/uL (4.8-10.8)
== END | disposition home or self-care (01) ==
LOC: C.LABBC 09:46
PROVIDERS: ATTEND Psychiatry & Neurology Neurology
DX: F32.9 Major depressive disorder, single episode, unspecified (principal); G43.901 Migraine, unspecified, not intractable, with status migrainosus; R41.3 Other amnesia

== ENCOUNTER → 2016-10-07 | Outpatient (CLI) | payer OTHER ==
--- NOTE | 2016-10-07 18:22 | DIAGNOSTIC IMAGING REPORT ---
MRA OF THE INTRACRANIAL CIRCULATION WITHOUT CONTRAST CLINICAL HISTORY: Complicated migraine. COMPARISON STUDY: None. TECHNIQUE: Utilizing a 1.5 [place] magnet and 3-D [id number] technique, unenhanced MRA of the intracranial circulation was obtained. FINDINGS: The bilateral M1, M2, A1 and A2 segments are patent. There is no abrupt vessel cut off. No stenosis is identified. No intracranial aneurysm is identified. Posterior circulation is intact. There is an anterior communicating artery. IMPRESSION: Normal MRA of the intracranial circulation. Electronically signed by: Venkata Wilson M.D. 10/07/2016 6:20 PM Dictated Date/Time: 10/07/2016 6:19 PM
== END | disposition home or self-care (01) ==
LOC: C.MRIBC 16:57
PROVIDERS: ATTEND Psychiatry & Neurology Neurology
DX: F32.9 Major depressive disorder, single episode, unspecified (principal); G43.901 Migraine, unspecified, not intractable, with status migrainosus; R41.3 Other amnesia